=== PATIENT | female | born 1960 | race Caucasian/White ===

== ENCOUNTER 2023-06-16 10:11 | Outpatient (RCR) | payer BC, SELFPAY | END 2023-06-16 11:04 | disposition home or self-care (01) | LOC: RPT 10:11 | PROVIDERS: ATTENDING PHYSICIAN Family Medicine Geriatric Medicine; FAMILY PHYSICIAN Family Medicine | DX: Z47.89 Encounter for other orthopedic aftercare (principal); Z73.6 Limitation of activities due to disability; Z79.811 Long term (current) use of aromatase inhibitors | CPT/HCPCS: 97110; 97112; 97140; 97535 ==

== ENCOUNTER → 2023-07-22 11:12 | Outpatient (REF) | payer MEDICARE, OTHER, SELFPAY ==
[2023-07-22 15:30] LABS: % Basophils 1.6 % (0-2); % Eosinophils 3.5 % (0-6); % Immature Granulocytes 0.3 % (0-0.5); % Lymphocytes 28.6 % (20.5-51.1); % Monocytes 8.6 % (1.7-9.3); % Neutrophils 57.4 % (42.2-75.2); Absolute Basophils 0.1 10^3/uL (0-0.2); Absolute Eosinophils 0.1 10^3/uL (0-0.7); Absolute Lymphocytes 0.9 10^3/uL (1.2-3.4); Absolute Monocytes 0.3 10^3/uL (0.1-0.6); Absolute Neutrophils 1.8 10^3/uL (1.4-6.5); Hematocrit 38.6 % (37.0-47.0); Hemoglobin 13.8 g/dL (12.0-16.0); Mean Corp Hgb Conc. 35.8 g/dL (33.0-37.0); Mean Corpuscular Hgb 29.8 pg (27.0-31.0); Mean Corpuscular Volume 83.4 fL (81.0-99.0); Mean Platelet Volume 9.5 fL (7.4-10.4); Nucleated Red Blood Cells % 0 %; Platelet Count 233 10^3/uL (130-400); Red Blood Cell Count 4.63 10^6/uL (4.20-5.40); Red Cell Dist. Width 15.2 % (11.5-14.5); White Blood Cell Count 3.2 10^3/uL (4.8-10.8)
[2023-07-22 15:38] LABS: ALT (SGPT) 25 U/L (0-35); AST (SGOT) 33 U/L (14-36); Albumin 4.4 g/dl (3.5-5.0); Alkaline Phosphatase 97 U/L (38-126); Blood Urea Nitrogen 15 mg/dl (7-17); Calcium 9.6 mg/dl (8.4-10.2); Carbon Dioxide 26 mmol/L (22-30); Chloride 103 mmol/L (98-107); Direct Bilirubin 0.6 mg/dl (0.0-0.4); Glucose 83 mg/dl (70-99); Potassium 4.3 mmol/L (3.5-5.1); Sodium 135 mmol/L (135-145); Total Bilirubin 0.6 mg/dl (0.2-1.3); eGFR > 60.00
== END ==
LOC: HWLAB 11:12
PROVIDERS: ATTENDING PHYSICIAN Internal Medicine Hematology & Oncology; FAMILY PHYSICIAN Family Medicine
DX: C50.412 Malignant neoplasm of upper-outer quadrant of left female breast (principal)
CPT/HCPCS: 36415; 80053; 82248; 85025

== ENCOUNTER → 2023-08-13 10:11 | Outpatient (REF) | payer MEDICARE, OTHER, SELFPAY ==
[2023-08-13 12:22] LABS: % Basophils 2.3 % (0-2); % Eosinophils 4.3 % (0-6); % Immature Granulocytes 0.3 % (0-0.5); % Lymphocytes 26.5 % (20.5-51.1); % Monocytes 8.3 % (1.7-9.3); % Neutrophils 58.3 % (42.2-75.2); Absolute Basophils 0.1 10^3/uL (0-0.2); Absolute Eosinophils 0.2 10^3/uL (0-0.7); Absolute Lymphocytes 0.9 10^3/uL (1.2-3.4); Absolute Monocytes 0.3 10^3/uL (0.1-0.6); Absolute Neutrophils 2.1 10^3/uL (1.4-6.5); Hematocrit 36.5 % (37.0-47.0); Hemoglobin 13.2 g/dL (12.0-16.0); Mean Corp Hgb Conc. 36.2 g/dL (33.0-37.0); Mean Corpuscular Hgb 30.8 pg (27.0-31.0); Mean Corpuscular Volume 85.1 fL (81.0-99.0); Mean Platelet Volume 9.4 fL (7.4-10.4); Nucleated Red Blood Cells % 0 %; Platelet Count 197 10^3/uL (130-400); Red Blood Cell Count 4.29 10^6/uL (4.20-5.40); Red Cell Dist. Width 15.5 % (11.5-14.5); White Blood Cell Count 3.5 10^3/uL (4.8-10.8)
[2023-08-13 12:58] LABS: ALT (SGPT) 25 U/L (0-35); AST (SGOT) 27 U/L (14-36); Albumin 3.9 g/dl (3.5-5.0); Alkaline Phosphatase 75 U/L (38-126); Blood Urea Nitrogen 21 mg/dl (7-17); Calcium 9.6 mg/dl (8.4-10.2); Carbon Dioxide 25 mmol/L (22-30); Chloride 102 mmol/L (98-107); Direct Bilirubin 0.5 mg/dl (0.0-0.4); Glucose 99 mg/dl (70-99); Potassium 4.1 mmol/L (3.5-5.1); Sodium 136 mmol/L (135-145); Total Bilirubin 0.7 mg/dl (0.2-1.3); Total Protein 6.7 g/dl (6.3-8.2); eGFR > 60.00
== END ==
LOC: HWLAB 10:11
PROVIDERS: ATTENDING PHYSICIAN Internal Medicine Hematology & Oncology; FAMILY PHYSICIAN Family Medicine
DX: C50.412 Malignant neoplasm of upper-outer quadrant of left female breast (principal)
CPT/HCPCS: 36415; 80048; 80076; 85025

== ENCOUNTER → 2023-09-16 07:48 | Outpatient (REF) | payer MEDICARE, OTHER, SELFPAY ==
[2023-09-16 09:33] LABS: % Basophils 2.4 % (0-2); % Eosinophils 4.9 % (0-6); % Lymphocytes 33.6 % (20.5-51.1); % Monocytes 8.9 % (1.7-9.3); % Neutrophils 50.2 % (42.2-75.2); Absolute Basophils 0.1 10^3/uL (0-0.2); Absolute Eosinophils 0.2 10^3/uL (0-0.7); Absolute Lymphocytes 1.1 10^3/uL (1.2-3.4); Absolute Monocytes 0.3 10^3/uL (0.1-0.6); Absolute Neutrophils 1.6 10^3/uL (1.4-6.5); Hematocrit 37.7 % (37.0-47.0); Hemoglobin 12.9 g/dL (12.0-16.0); Mean Corp Hgb Conc. 34.2 g/dL (33.0-37.0); Mean Corpuscular Hgb 30.8 pg (27.0-31.0); Mean Platelet Volume 9.1 fL (7.4-10.4); Nucleated Red Blood Cells % 0 %; Platelet Count 185 10^3/uL (130-400); Red Blood Cell Count 4.19 10^6/uL (4.20-5.40); Red Cell Dist. Width 15.3 % (11.5-14.5); White Blood Cell Count 3.3 10^3/uL (4.8-10.8)
[2023-09-16 10:09] LABS: ALT (SGPT) 20 U/L (0-35); AST (SGOT) 24 U/L (14-36); Albumin 4.1 g/dl (3.5-5.0); Alkaline Phosphatase 74 U/L (38-126); Blood Urea Nitrogen 15 mg/dl (7-17); Calcium 10.1 mg/dl (8.4-10.2); Carbon Dioxide 27 mmol/L (22-30); Chloride 102 mmol/L (98-107); Glucose 87 mg/dl (70-99); HDL Cholesterol 40 mg/dl; LDL Cholesterol, Calculated 56 mg/dl; Magnesium 2.2 mg/dl (1.6-2.3); Potassium 4.6 mmol/L (3.5-5.1); Sodium 137 mmol/L (135-145); Total Bilirubin 0.7 mg/dl (0.2-1.3); Total Cholesterol 144 mg/dl (50-199); Total Protein 6.8 g/dl (6.3-8.2); Triglyceride 244 mg/dl (10-149); Very Low Density Lipoprotein 48 mg/dl (0-30); eGFR > 60.00
== END ==
LOC: HWLAB 07:48
PROVIDERS: ATTENDING PHYSICIAN Internal Medicine Cardiovascular Disease; FAMILY PHYSICIAN Family Medicine; REFERRING PHYSICIAN Internal Medicine Hematology & Oncology
DX: K52.9 Noninfective gastroenteritis and colitis, unspecified (principal); Z85.3 Personal history of malignant neoplasm of breast; C50.412 Malignant neoplasm of upper-outer quadrant of left female breast; I10 Essential (primary) hypertension
CPT/HCPCS: 36415; 80048; 80061; 80076; 83735; 85025

== ENCOUNTER → 2023-10-14 10:29 | Outpatient (REF) | payer MEDICARE, OTHER, SELFPAY ==
[2023-10-14 13:09] LABS: % Immature Granulocytes 0.3 % (0-0.5); % Lymphocytes 29.8 % (20.5-51.1); % Neutrophils 53.9 % (42.2-75.2); Absolute Basophils 0.1 10^3/uL (0-0.2); Absolute Eosinophils 0.1 10^3/uL (0-0.7); Absolute Lymphocytes 0.9 10^3/uL (1.2-3.4); Absolute Monocytes 0.3 10^3/uL (0.1-0.6); Absolute Neutrophils 1.6 10^3/uL (1.4-6.5); Hematocrit 36.9 % (37.0-47.0); Hemoglobin 12.8 g/dL (12.0-16.0); Mean Corp Hgb Conc. 34.7 g/dL (33.0-37.0); Mean Corpuscular Hgb 32.5 pg (27.0-31.0); Mean Corpuscular Volume 93.7 fL (81.0-99.0); Mean Platelet Volume 9.4 fL (7.4-10.4); Nucleated Red Blood Cells % 0 %; Platelet Count 222 10^3/uL (130-400); Red Blood Cell Count 3.94 10^6/uL (4.20-5.40); Red Cell Dist. Width 13.7 % (11.5-14.5)
[2023-10-14 14:14] LABS: ALT (SGPT) 16 U/L (0-35); AST (SGOT) 25 U/L (14-36); Albumin 4.4 g/dl (3.5-5.0); Alkaline Phosphatase 82 U/L (38-126); Blood Urea Nitrogen 15 mg/dl (7-17); Carbon Dioxide 26 mmol/L (22-30); Chloride 105 mmol/L (98-107); Glucose 94 mg/dl (70-99); Potassium 5.1 mmol/L (3.5-5.1); Sodium 135 mmol/L (135-145); Total Bilirubin 0.7 mg/dl (0.2-1.3); Total Protein 7.1 g/dl (6.3-8.2); eGFR > 60.00
== END ==
LOC: HWLAB 10:29
PROVIDERS: ATTENDING PHYSICIAN Internal Medicine Hematology & Oncology; FAMILY PHYSICIAN Family Medicine
DX: C50.412 Malignant neoplasm of upper-outer quadrant of left female breast (principal)
CPT/HCPCS: 36415; 80053; 85025

== ENCOUNTER → 2023-11-11 14:46 | Outpatient (REF) | payer MEDICARE, OTHER, SELFPAY | LOC: WDC 14:46 | PROVIDERS: ATTENDING PHYSICIAN Family Medicine Geriatric Medicine; FAMILY PHYSICIAN Family Medicine | DX: R92.8 Other abnormal and inconclusive findings on diagnostic imaging of breast (principal) | CPT/HCPCS: 76641 ==

== ENCOUNTER → 2024-02-17 06:48 | Outpatient (REF) | payer MEDICARE, OTHER, SELFPAY ==
[2024-02-17 07:50] LABS: % Basophils 3.1 % (0-2); % Eosinophils 4.2 % (0-6); % Immature Granulocytes 0.3 % (0-0.5); % Lymphocytes 37.8 % (20.5-51.1); % Monocytes 9.7 % (1.7-9.3); % Neutrophils 44.9 % (42.2-75.2); Absolute Basophils 0.1 10^3/uL (0-0.2); Absolute Eosinophils 0.1 10^3/uL (0-0.7); Absolute Lymphocytes 1.1 10^3/uL (1.2-3.4); Absolute Monocytes 0.3 10^3/uL (0.1-0.6); Absolute Neutrophils 1.3 10^3/uL (1.4-6.5); Hematocrit 32.6 % (37.0-47.0); Hemoglobin 11.7 g/dL (12.0-16.0); Mean Corp Hgb Conc. 35.9 g/dL (33.0-37.0); Mean Corpuscular Volume 91.8 fL (81.0-99.0); Mean Platelet Volume 9.4 fL (7.4-10.4); Nucleated Red Blood Cells % 0 %; Platelet Count 177 10^3/uL (130-400); Red Blood Cell Count 3.55 10^6/uL (4.20-5.40); Red Cell Dist. Width 14.6 % (11.5-14.5); White Blood Cell Count 2.9 10^3/uL (4.8-10.8)
[2024-02-17 08:38] LABS: ALT (SGPT) 17 U/L (0-35); AST (SGOT) 28 U/L (14-36); Albumin 3.9 g/dl (3.5-5.0); Alkaline Phosphatase 73 U/L (38-126); Blood Urea Nitrogen 14 mg/dl (7-17); Calcium 9.6 mg/dl (8.4-10.2); Carbon Dioxide 24 mmol/L (22-30); Chloride 106 mmol/L (98-107); Glucose 87 mg/dl (70-99); HDL Cholesterol 41 mg/dl; LDL Cholesterol, Calculated 65 mg/dl; Potassium 4.5 mmol/L (3.5-5.1); Sodium 139 mmol/L (135-145); Total Bilirubin 0.4 mg/dl (0.2-1.3); Total Cholesterol 181 mg/dl (50-199); Total Protein 6.3 g/dl (6.3-8.2); Triglyceride 375 mg/dl (10-149); Very Low Density Lipoprotein 75 mg/dl (0-30); eGFR > 60.00
[2024-02-17 08:44] LABS: TSH 2.16 uIU/ml (0.47-4.68)
== END ==
LOC: REG 06:48
PROVIDERS: ATTENDING PHYSICIAN Family Medicine; OTHER PHYSICIAN Internal Medicine Hematology & Oncology; REFERRING PHYSICIAN Internal Medicine Endocrinology, Diabetes & Metabolism
DX: I10 Essential (primary) hypertension (principal); E78.1 Pure hyperglyceridemia; R73.09 Other abnormal glucose
CPT/HCPCS: 36415; 80053; 80061; 83036; 84443; 85025

== ENCOUNTER → 2024-04-25 08:39 | Outpatient (REF) | payer MEDICARE, OTHER, SELFPAY | LOC: WDC 08:39 | PROVIDERS: ATTENDING PHYSICIAN Family Medicine Geriatric Medicine; FAMILY PHYSICIAN Family Medicine | DX: Z12.31 Encounter for screening mammogram for malignant neoplasm of breast (principal); R92.8 Other abnormal and inconclusive findings on diagnostic imaging of breast | CPT/HCPCS: 76642; 77063; 77067 ==

== ENCOUNTER → 2024-06-02 09:09 | Outpatient (REF) | payer MEDICARE, OTHER, SELFPAY ==
[2024-06-02 11:02] LABS: % Basophils 1.4 % (0-2); % Eosinophils 2.3 % (0-6); % Immature Granulocytes 0.6 % (0-0.5); % Lymphocytes 23.6 % (20.5-51.1); % Monocytes 7.8 % (1.7-9.3); % Neutrophils 64.3 % (42.2-75.2); Absolute Basophils 0.1 10^3/uL (0-0.2); Absolute Eosinophils 0.1 10^3/uL (0-0.7); Absolute Lymphocytes 0.8 10^3/uL (1.2-3.4); Absolute Monocytes 0.3 10^3/uL (0.1-0.6); Absolute Neutrophils 2.2 10^3/uL (1.4-6.5); Hematocrit 38.9 % (37.0-47.0); Hemoglobin 13.1 g/dL (12.0-16.0); Mean Corp Hgb Conc. 33.7 g/dL (33.0-37.0); Mean Corpuscular Hgb 31.2 pg (27.0-31.0); Mean Corpuscular Volume 92.6 fL (81.0-99.0); Mean Platelet Volume 9.2 fL (7.4-10.4); Nucleated Red Blood Cells % 0 %; Platelet Count 211 10^3/uL (130-400); Red Cell Dist. Width 13.8 % (11.5-14.5); White Blood Cell Count 3.5 10^3/uL (4.8-10.8)
== END ==
LOC: RCS 09:09
PROVIDERS: ATTENDING PHYSICIAN Internal Medicine Cardiovascular Disease; FAMILY PHYSICIAN Family Medicine; REFERRING PHYSICIAN Internal Medicine Hematology & Oncology
DX: Z85.3 Personal history of malignant neoplasm of breast (principal); T45.1X5D Adverse effect of antineoplastic and immunosuppressive drugs, subsequent encounter
CPT/HCPCS: 36415; 85025; 93306; 93356

== ENCOUNTER → 2024-07-18 10:14 | Outpatient (REF) | payer MEDICARE, OTHER, SELFPAY ==
[2024-07-18 12:49] LABS: % Basophils 1.6 % (0-2); % Eosinophils 1.9 % (0-6); % Immature Granulocytes 0.3 % (0-0.5); % Lymphocytes 23.6 % (20.5-51.1); % Monocytes 9.8 % (1.7-9.3); % Neutrophils 62.8 % (42.2-75.2); Absolute Basophils 0.1 10^3/uL (0-0.2); Absolute Eosinophils 0.1 10^3/uL (0-0.7); Absolute Lymphocytes 0.9 10^3/uL (1.2-3.4); Absolute Monocytes 0.4 10^3/uL (0.1-0.6); Absolute Neutrophils 2.3 10^3/uL (1.4-6.5); Hematocrit 40.1 % (37.0-47.0); Hemoglobin 13.7 g/dL (12.0-16.0); Mean Corp Hgb Conc. 34.2 g/dL (33.0-37.0); Mean Corpuscular Hgb 31.7 pg (27.0-31.0); Mean Corpuscular Volume 92.8 fL (81.0-99.0); Mean Platelet Volume 9.5 fL (7.4-10.4); Nucleated Red Blood Cells % 0 %; Platelet Count 196 10^3/uL (130-400); Red Blood Cell Count 4.32 10^6/uL (4.20-5.40); Red Cell Dist. Width 13.6 % (11.5-14.5); White Blood Cell Count 3.7 10^3/uL (4.8-10.8)
[2024-07-18 13:23] LABS: ALT (SGPT) 29 U/L (0-35); AST (SGOT) 35 U/L (14-36); Albumin 4.7 g/dl (3.5-5.0); Alkaline Phosphatase 96 U/L (38-126); Blood Urea Nitrogen 17 mg/dl (7-17); Calcium 10.1 mg/dl (8.4-10.2); Carbon Dioxide 25 mmol/L (22-30); Chloride 102 mmol/L (98-107); Direct Bilirubin 0.1 mg/dl (0.0-0.4); Glucose 94 mg/dl (70-99); HDL Cholesterol 49 mg/dl; LDL Cholesterol, Calculated 108 mg/dl; Sodium 137 mmol/L (135-145); Total Bilirubin 0.7 mg/dl (0.2-1.3); Total Cholesterol 220 mg/dl (50-199); Total Protein 7.5 g/dl (6.3-8.2); Triglyceride 316 mg/dl (10-149); Very Low Density Lipoprotein 63 mg/dl (0-30); eGFR > 60.00
[2024-07-18 13:33] LABS: LDL Cholesterol, Direct 107 mg/dl
== END ==
LOC: HWLAB 10:14
PROVIDERS: ATTENDING PHYSICIAN Internal Medicine Hematology & Oncology; FAMILY PHYSICIAN Family Medicine; REFERRING PHYSICIAN Internal Medicine Cardiovascular Disease
DX: C50.412 Malignant neoplasm of upper-outer quadrant of left female breast (principal); E78.1 Pure hyperglyceridemia
CPT/HCPCS: 36415; 80048; 80061; 80076; 83721; 85025

== ENCOUNTER 2024-10-10 06:17 | Day surgery (SDC) | payer MEDICARE, OTHER, SELFPAY ==
[2024-10-10] VITALS (9 sets, daily range): BP systolic 124–151; BP diastolic 64–89
--- NOTE | 2024-10-10 15:04 | W.IMMPOSTOP ---
Surgical Immed Post Op Note
-
Primary Surgeon: GOLD Hinson MD
Assisting Surgeon:
Pre-op Diagnosis: s/p MELISSA flap breast reconstruction
Post-op Diagnosis: Same
Procedure Performed: Right mastopexy, Left revision to reconstructed breast, fat grafting to the reconstructed breast
Anesthesia Type: GA
Specimen / Cultures: None
Estimated Blood Loss: 10cc
Complications: None
Operative Findings: As expected
--- NOTE | 2024-10-10 15:05 | OR.RPT ---
Operative Report
Operative Report
Date of Surgery: 10/10/24
Surgeon: GOLD Hinson MD
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
Postoperative diagnosis: Same
Procedure:
1. Right balancing mastopexy
2. Revision of the left reconstructed breast
3. Fat grafting to the reconstructed breast, 210 cc
4. Adjacent tissue transfer, trunk, bilateral�5 x 3 cm; 6 x 3.5 cm
Complications: None
Anesthesia: General
EBL: 10 cc
Indications for procedure: Patient is a 64-year-old female with a history of left-sided breast cancer. She underwent skin sparing mastectomy and postoperative radiation therapy. A tissue bisque cleaner was placed for immediate reconstruction and a
balancing right reduction was performed. Following her radiation therapy, she elected for a left MELISSA flap breast reconstruction and this was performed at [place]. She returned to [place] in consultation for revisions to her left reconstructed breast.
She complained of asymmetry, particularly the right breast being lower and smaller than the left. She also complained of some contour abnormalities of the left breast. She also endorsed bilateral 'dogears' of the abdominal donor site. A plan was
made for right mastopexy with left revision reconstructed breast and fat grafting. Bilateral dogears would be excised and lateral tissue advanced to correct the tissue mismatch. Risk include scar, recurrence, asymmetry, fat necrosis, need for
repeat procedure. Patient consented accordingly.
Procedure in detail: Patient was identified preoperatively and the surgical site was confirmed to be the bilateral breast bilateral flanks and medial thighs. All questions were answered and consents were confirmed. Patient was taken back the
operating placed supine the table. Anesthesia was induced and patient was prepped and draped in the usual sterile fashion. Timeout for patient safety was performed was confirmed that bilateral SCDs were placed and preoperative antibiotics
administered. Procedure began with 15 blade and a series of focals after injecting 1% lidocaine with epinephrine. Tumescence was then injected into the all the donor sites for fat grafting including the bilateral medial thighs and bilateral
lateral flanks. Lipo aspiration would be used as an adjunct to dogear correction. A total of 1.5 L of tumescent solution was distributed evenly among these donor sites. Attention was then drawn to the right breast where the right balancing
mastopexy was performed. A vertical pattern mastopexy had been drawn out previously and the incisions were made with a 15 blade after marking the 42 mm nipple areolar complex. Within the markings, the skin was de-epithelialized. A superiorly
based inferior wedge was then created for transposition to the upper pole. Dissection continued with Bovie electrocautery cautery creating medial and lateral pillars. Marcaine block was performed and the pectoralis fascia. Medial lateral pillars
were then approximated using a series of 0 and 2-0 Vicryl sutures followed by 3-0 and 4 Monocryl. It was then inset with 3-0 and 4-0 Monocryl sutures. Following inset, the nipple maintain adequate perfusion. Attention was then drawn back to the
areas of tumescence. Lipo aspiration was then performed after off suction. A total of 800 cc Lipo aspirate was obtained in this process with the Pure Graft System. A total of 210 cc of filtered fat graft was then available for
injection. The revision to the left reconstructed breast was then performed by subsidizing the areas of tethered scar and recontouring the flap relative to the mastectomy skin flap. This was performed via blunt and cannula disruption. The fat
graft was then distributed in the lower pole to add the required projection the patient desired. Attention was then drawn to the bilateral dogear. Planned excisions measured 5 x 3 cm and 6 x 3.5 cm. The resultant defects were greater and required
lateral advancement of the superior skin flaps to prevent recurrent dogears. These were then closed with 304 0 Monocryl. All poke holes were closed with 5-0 fast. Patient tolerated the procedure well, was performed out complication. All counts
were correct at the end the case. She was extubated taken the PACU for further care.
[2024-10-10] MEDS: DILAUDID 0.25 MG IV ×2 (15:30→15:42)
== END 2024-10-10 17:20 | disposition home or self-care (01) ==
LOC: SDS 06:17
PROVIDERS: ATTENDING PHYSICIAN Surgery Plastic and Reconstructive Surgery
DX: N64.89 Other specified disorders of breast (principal); Z85.3 Personal history of malignant neoplasm of breast; Z90.12 Acquired absence of left breast and nipple; Z92.3 Personal history of irradiation
CPT/HCPCS: 19316; 19380; 15771

== ENCOUNTER → 2024-10-19 09:27 | Outpatient (REF) | payer MEDICARE, OTHER, SELFPAY ==
[2024-10-19 12:22] LABS: % Basophils 2.2 % (0-2); % Eosinophils 4.3 % (0-6); % Immature Granulocytes 1.7 % (0-0.5); % Lymphocytes 21.5 % (20.5-51.1); % Monocytes 17.6 % (1.7-9.3); % Neutrophils 52.7 % (42.2-75.2); Absolute Basophils 0.1 10^3/uL (0-0.2); Absolute Eosinophils 0.2 10^3/uL (0-0.7); Absolute Immature Granulocytes 0.1 10^3/uL (0-0.05); Absolute Lymphocytes 0.9 10^3/uL (1.2-3.4); Absolute Monocytes 0.7 10^3/uL (0.1-0.6); Absolute Neutrophils 2.2 10^3/uL (1.4-6.5); Hematocrit 34.5 % (37.0-47.0); Hemoglobin 11.9 g/dL (12.0-16.0); Mean Corp Hgb Conc. 34.5 g/dL (33.0-37.0); Mean Corpuscular Volume 95.6 fL (81.0-99.0); Mean Platelet Volume 9.7 fL (7.4-10.4); Nucleated Red Blood Cells % 0 %; Platelet Count 214 10^3/uL (130-400); Red Blood Cell Count 3.61 10^6/uL (4.20-5.40); White Blood Cell Count 4.1 10^3/uL (4.8-10.8)
[2024-10-19 12:34] LABS: ALT (SGPT) 49 U/L (0-35); AST (SGOT) 42 U/L (14-36); Albumin 4.3 g/dl (3.5-5.0); Alkaline Phosphatase 103 U/L (38-126); Blood Urea Nitrogen 15 mg/dl (7-17); Calcium 9.8 mg/dl (8.4-10.2); Carbon Dioxide 25 mmol/L (22-30); Chloride 105 mmol/L (98-107); Direct Bilirubin 0.3 mg/dl (0.0-0.4); Glucose 107 mg/dl (70-99); HDL Cholesterol 40 mg/dl; LDL Cholesterol, Calculated 135 mg/dl; Potassium 4.4 mmol/L (3.5-5.1); Sodium 139 mmol/L (135-145); Total Bilirubin 0.8 mg/dl (0.2-1.3); Total Cholesterol 226 mg/dl (50-199); Total Protein 6.8 g/dl (6.3-8.2); Triglyceride 259 mg/dl (10-149); Very Low Density Lipoprotein 51 mg/dl (0-30); eGFR > 60.00
== END ==
LOC: HWLAB 09:27
PROVIDERS: ATTENDING PHYSICIAN Internal Medicine Hematology & Oncology; FAMILY PHYSICIAN Family Medicine
DX: C50.412 Malignant neoplasm of upper-outer quadrant of left female breast (principal); I10 Essential (primary) hypertension
CPT/HCPCS: 36415; 80053; 80061; 82248; 85025

== ENCOUNTER → 2025-01-16 06:49 | Outpatient (REF) | payer MEDICARE, OTHER, SELFPAY ==
[2025-01-16 07:56] LABS: Hematocrit 37.1 % (37.0-47.0); Hemoglobin 13.0 g/dL (12.0-16.0); Mean Corp Hgb Conc. 35.0 g/dL (33.0-37.0); Mean Corpuscular Volume 90.7 fL (81.0-99.0); Nucleated Red Blood Cells % 0 %; Platelet Count 187 10^3/uL (130-400); Red Cell Dist. Width 13.7 % (11.5-14.5)
[2025-01-16 08:28] LABS: ALT (SGPT) 26 U/L (0-35); AST (SGOT) 26 U/L (14-36); Albumin 4.4 g/dl (3.5-5.0); Alkaline Phosphatase 74 U/L (38-126); Blood Urea Nitrogen 15 mg/dl (7-17); Calcium 9.7 mg/dl (8.4-10.2); Carbon Dioxide 25 mmol/L (22-30); Chloride 108 mmol/L (98-107); Glucose 98 mg/dl (70-99); Potassium 4.1 mmol/L (3.5-5.1); Sodium 139 mmol/L (135-145); Total Protein 6.9 g/dl (6.3-8.2); eGFR > 60.00
== END ==
LOC: REG 06:49
PROVIDERS: ATTENDING PHYSICIAN Internal Medicine Hematology & Oncology; FAMILY PHYSICIAN Family Medicine
DX: C50.412 Malignant neoplasm of upper-outer quadrant of left female breast (principal)
CPT/HCPCS: 36415; 80053; 85025

== ENCOUNTER → 2025-05-01 07:45 | Outpatient (REF) | payer MEDICARE, OTHER, SELFPAY ==
[2025-05-01 09:32] LABS: Hematocrit 36.9 % (37.0-47.0); Hemoglobin 12.4 g/dL (12.0-16.0); Mean Corp Hgb Conc. 33.6 g/dL (33.0-37.0); Mean Corpuscular Volume 91.8 fL (81.0-99.0); Nucleated Red Blood Cells % 0 %; Platelet Count 191 10^3/uL (130-400); Red Cell Dist. Width 13.4 % (11.5-14.5)
== END ==
LOC: REG 07:45
PROVIDERS: ATTENDING PHYSICIAN Internal Medicine Hematology & Oncology; FAMILY PHYSICIAN Family Medicine
DX: C50.412 Malignant neoplasm of upper-outer quadrant of left female breast (principal)
CPT/HCPCS: 36415; 85025

== ENCOUNTER → 2025-05-04 08:36 | Outpatient (REF) | payer MEDICARE, OTHER, SELFPAY ==
[2025-05-04 10:58] LABS: ALT (SGPT) 38 U/L (0-35); AST (SGOT) 36 U/L (14-36); Albumin 4.8 g/dl (3.5-5.0); Alkaline Phosphatase 89 U/L (38-126); Blood Urea Nitrogen 15 mg/dl (7-17); Calcium 10.1 mg/dl (8.4-10.2); Carbon Dioxide 27 mmol/L (22-30); Chloride 102 mmol/L (98-107); Glucose 100 mg/dl (70-99); Potassium 4.8 mmol/L (3.5-5.1); Sodium 136 mmol/L (135-145); Total Protein 7.8 g/dl (6.3-8.2); eGFR > 60.00
== END ==
LOC: WDC 08:36
PROVIDERS: ATTENDING PHYSICIAN Family Medicine Geriatric Medicine; FAMILY PHYSICIAN Family Medicine; REFERRING PHYSICIAN Internal Medicine Hematology & Oncology
DX: Z12.31 Encounter for screening mammogram for malignant neoplasm of breast (principal); C50.412 Malignant neoplasm of upper-outer quadrant of left female breast
CPT/HCPCS: 36415; 77063; 77067; 80053

== ENCOUNTER → 2025-05-25 08:08 | Outpatient (REF) | payer MEDICARE, OTHER, SELFPAY | LOC: HWRCS 08:08 | PROVIDERS: ATTENDING PHYSICIAN Internal Medicine Cardiovascular Disease; FAMILY PHYSICIAN Family Medicine | DX: Z85.3 Personal history of malignant neoplasm of breast (principal); T45.1X5D Adverse effect of antineoplastic and immunosuppressive drugs, subsequent encounter | CPT/HCPCS: 93306; 93356 ==